=== PATIENT | female | born 1990 | race Caucasian/White ===

== ENCOUNTER 2017-05-17 09:32 | Observation (INO) | payer BC ==
[2017-05-17 10:28] VITALS: RESP 20; TEMP 96.5
[2017-05-17 11:01] VITALS: BP 93/60; PULSE 93
== END 2017-05-17 10:45 | disposition home or self-care (01) ==
LOC: OB 09:41
PROVIDERS: ADMIT Family Medicine; ATTEND Family Medicine
DX: O26.893 Other specified pregnancy related conditions, third trimester (principal); Z3A.40 40 weeks gestation of pregnancy; N89.8 Other specified noninflammatory disorders of vagina
CPT/HCPCS: 59025; 84112

== ENCOUNTER 2017-05-20 18:55 | Inpatient (IN) | payer BC ==
[2017-05-20] MEDS: SODIUM CHLORIDE 0.9% FLUSH 10 ML SOL IV SCH (20:30)
[2017-05-20] MEDS ORDERED: CARBOPROST 250 MCG/ML SOL IM PRN (21:06)
[2017-05-20] MEDS ORDERED: MEPIVACAINE HCL 1% MPF 30 ML SOL INFIL PRN (21:06)
[2017-05-20] MEDS ORDERED: LACTATED RINGERS 1,000 ML IV PRN (21:06)
[2017-05-20] MEDS ORDERED: OXYTOCIN 10000 MU/ML SOL IM PRN (21:06)
[2017-05-20] MEDS ORDERED: SODIUM CHLORIDE 0.9% FLUSH 10 ML SOL IV PRN (21:06)
[2017-05-20] MEDS ORDERED: METHYLERGONOVINE MALEATE 0.2 MG/ML SOL IM PRN (21:06)
[2017-05-20] MEDS ORDERED: FENTANYL 100MCG/2ML SOL IV PRN (21:06)
[2017-05-21] MEDS ORDERED: AMPICILLIN 1 GM PDS 2 GM in SODIUM CHLORIDE 0.9% 100 ML 100 ML IV SCH (02:15)
[2017-05-21] MEDS ORDERED: AMPICILLIN 1 GM PDS ONE ×5 (02:31→17:16)
[2017-05-21] MEDS ORDERED: OXYTOCIN 10000 MU/ML 20,000 MU in LACTATED RINGERS 1,000 ML IV SCH (04:15)
[2017-05-21] MEDS ORDERED: LACTATED RINGERS 1,000 ML IV SCH ×3 (04:15→20:00)
[2017-05-21] MEDS ORDERED: LACTATED RINGERS 1,000 ML ONE (04:53)
[2017-05-21] MEDS ORDERED: OXYTOCIN 10000 MU/ML SOL ONE ×2 (04:53→19:15)
[2017-05-21] MEDS: SODIUM CHLORIDE 0.9% FLUSH 10 ML SOL IV SCH ×2 (05:02→17:08)
[2017-05-21] MEDS: AMPICILLIN 1 GM PDS 1 GM in SODIUM CHLORIDE 0.9% 100 ML 100 ML IV SCH ×4 (06:00→18:17)
[2017-05-21] MEDS ORDERED: TERBUTALINE SULFATE 1 MG/ML SOL SC PRN (08:12)
[2017-05-21] MEDS ORDERED: EPHEDRINE SULFATE 50 MG/ML SOL IV PRN (12:14)
[2017-05-21] MEDS ORDERED: NALBUPHINE HCL 20 MG/ML SOL IV PRN (12:14)
[2017-05-21] MEDS ORDERED: NALOXONE HYDROCHLORIDE 0.4 MG/ML SOL IV PRN (12:14)
[2017-05-21] MEDS ORDERED: DIPHENHYDRAMINE 50 MG/ML SOL IV PRN (12:14)
[2017-05-21] MEDS: LACTATED RINGERS 1,000 ML IV SCH ×3 (12:15→13:00)
[2017-05-21 12:27] LABS: BASOPHILS % (AUTO) 1 % (0-3); EOSINOPHILS % (AUTO) 0 % (0-9); HEMATOCRIT 33 % (35-47); MEAN CORPUSCULAR HGB CONC 35.4 gm/dl (32.0-36.0); MEAN CORPUSCULAR VOLUME 89 fL (81-99); MONOCYTES % (AUTO) 5.1 % (0-12); NEUTROPHILS % (AUTO) 72.6 % (37-80)
[2017-05-21] MEDS ORDERED: LIDOCAINE HCL 2% MPF SOL ONE (12:40)
[2017-05-21] MEDS ORDERED: FENTANYL 250 MCG/ 5ML SOL ONE (13:04)
[2017-05-21] MEDS ORDERED: ROPIVACAINE HYDROCHLORIDE 5 MG/ML SOL ONE (13:04)
[2017-05-21] MEDS ORDERED: MISOPROSTOL 100 MCG TAB ONE ×2 (19:13→19:17)
[2017-05-21] MEDS ORDERED: CARBOPROST 250 MCG/ML SOL IM ONE (19:15)
[2017-05-21] MEDS ORDERED: METHYLERGONOVINE MALEATE 0.2 MG/ML SOL ONE (19:15)
[2017-05-21] MEDS ORDERED: MISOPROSTOL 100 MCG TAB PR PRN (19:25)
[2017-05-21] MEDS ORDERED: SODIUM CHLORIDE 0.9% 1000ML 1,000 ML IV SCH (19:30)
[2017-05-21] MEDS ORDERED: ONDANSETRON HCL 4 MG/2 ML SOL IV PRN (19:30)
[2017-05-21] MEDS ORDERED: ONDANSETRON HCL 4 MG/2 ML SOL ONE (19:43)
[2017-05-21] MEDS ORDERED: METHYLERGONOVINE MALEATE 0.2 MG TAB PO PRN (20:30)
[2017-05-21] MEDS ORDERED: BISACODYL 10 MG SUP PR PRN (20:30)
[2017-05-21] MEDS ORDERED: WITCH HAZEL 1 EA PAD TOP PRN (20:30)
[2017-05-21] MEDS ORDERED: FLEET ENEMA PR PRN (20:30)
[2017-05-21] MEDS ORDERED: BENZOCAINE/MENTHOL 1 SPR TOP PRN (20:30)
[2017-05-21] MEDS ORDERED: TEMAZEPAM 15MG 15 MG CAP PO PRN (20:30)
[2017-05-21] MEDS: APAP/HYDROCODONE 325/5 TAB PO PRN (21:05)
[2017-05-21] MEDS: DOCUSATE SODIUM 100 MG SGL PO SCH (21:20)
[2017-05-21 22:12] LABS: BASOPHILS % (AUTO) 0 % (0-3); EOSINOPHILS % (AUTO) 0 % (0-9); HEMATOCRIT 33 % (35-47); MEAN CORPUSCULAR HGB CONC 35.4 gm/dl (32.0-36.0); MEAN CORPUSCULAR VOLUME 89 fL (81-99); MONOCYTES % (AUTO) 5.3 % (0-12); NEUTROPHILS % (AUTO) 88.5 % (37-80)
[2017-05-22] MEDS: IBUPROFEN 600 MG TAB PO PRN ×2 (00:17→09:31)
[2017-05-22] MEDS: SODIUM CHLORIDE 0.9% FLUSH 10 ML SOL IV SCH ×4 (00:17→21:07)
[2017-05-22] MEDS: LACTATED RINGERS 1,000 ML IV SCH ×2 (01:28→03:11)
[2017-05-22] MEDS: APAP/HYDROCODONE 325/5 TAB PO PRN ×3 (04:34→21:06)
[2017-05-22 09:31] VITALS: RESP 16
[2017-05-22] MEDS: FERROUS GLUCONATE 324 MG TABLET PO SCH (09:31)
[2017-05-22] MEDS: DOCUSATE SODIUM 100 MG SGL PO SCH ×2 (09:31→21:07)
[2017-05-22 12:52] LABS: ABO O
[2017-05-22 12:54] LABS: RH TYPE Negative
[2017-05-23] MEDS: IBUPROFEN 600 MG TAB PO PRN ×2 (01:29→08:49)
[2017-05-23] MEDS: DOCUSATE SODIUM 100 MG SGL PO SCH (08:45)
[2017-05-23] MEDS: FERROUS GLUCONATE 324 MG TABLET PO SCH (08:45)
[2017-05-23 13:21] VITALS: BP 114/74; PULSE 93; TEMP 97.9; O2SAT 96
== END 2017-05-23 14:25 | disposition home or self-care (01) | DRG 560 ==
LOC: UNDOADMOB 18:55 → INTOOBSV 18:55 → OB 18:55 → OBSVTOIN 18:55 → OB 05-21 18:55 → UNDOADMOB 05-21 18:55 → OBSVTOIN 05-21 19:03 → OB 05-21 19:03 → UNDOADMOB 05-21 19:03 → INTOOBSV 05-21 19:03 → UNDOADMOB 05-22 13:15 → OB 05-22 13:15 → OBSVTOIN 05-22 13:15 → OB 05-22 13:15 → INTOOBSV 05-22 13:15 → UNDODISIN 05-23 14:25
PROVIDERS: ADMIT Family Medicine; ATTEND Family Medicine
PROC: 0U7C7ZZ Dilation of Cervix, Via Natural or Artificial Opening (ICD-10-PCS; 2017-05-20)
PROC: 10D07Z6 Extraction of Products of Conception, Vacuum, Via Natural or Artificial Opening (ICD-10-PCS; principal; 2017-05-21)
PROC: 10907ZC Drainage of Amniotic Fluid, Therapeutic from Products of Conception, Via Natural or Artificial Opening (ICD-10-PCS; 2017-05-21)
PROC: 3E0P3VZ Introduction of Hormone into Female Reproductive, Percutaneous Approach (ICD-10-PCS; 2017-05-21)
PROC: 0KQM0ZZ Repair Perineum Muscle, Open Approach (ICD-10-PCS; 2017-05-21)
PROC: 0UQGXZZ Repair Vagina, External Approach (ICD-10-PCS; 2017-05-21)
PROC: 3E04329 Introduction of Other Anti-infective into Central Vein, Percutaneous Approach (ICD-10-PCS; 2017-05-21)
PROC: 3E0234Z Introduction of Serum, Toxoid and Vaccine into Muscle, Percutaneous Approach (ICD-10-PCS; 2017-05-22)
DX: O48.0 Post-term pregnancy (principal); O72.1 Other immediate postpartum hemorrhage; O99.824 Streptococcus B carrier state complicating childbirth; O76 Abnormality in fetal heart rate and rhythm complicating labor and delivery; O70.1 Second degree perineal laceration during delivery; O36.0930 Maternal care for other rhesus isoimmunization, third trimester, not applicable or unspecified; Z37.0 Single live birth; Z3A.41 41 weeks gestation of pregnancy
CPT/HCPCS: 36415; 85018; 85025; 86900; 86901; J0290; J0670; J2210; J2405; J2590; J2795; J3010; J3105